=== PATIENT | male | born 1980 | race African-American/Black ===

== ENCOUNTER 2019-01-14 18:01 | Emergency (ER) | payer OTHER ==
[~2019-01-14] VITALS: Ht 162.6 cm; Wt 61.8 kg
[2019-01-14 18:15] VITALS: BP 136/86; Ht 162.6 cm; Wt 61.8 kg
== END 2019-01-14 19:48 | disposition home or self-care (01) ==
LOC: ED 18:01
DX: S60.021A Contusion of right index finger without damage to nail, initial encounter (principal); W23.0XXA Caught, crushed, jammed, or pinched between moving objects, initial encounter; Y93.89 Activity, other specified; Y92.89 Other specified places as the place of occurrence of the external cause; Y99.8 Other external cause status

== ENCOUNTER 2019-01-21 11:23 | Emergency (ER) | payer OTHER ==
[~2019-01-21] VITALS: Ht 162.6 cm; Wt 60.8 kg
[2019-01-21 11:37] VITALS: BP 122/76; Ht 162.6 cm; Wt 60.8 kg
== END 2019-01-21 15:45 | disposition home or self-care (01) ==
LOC: ED 11:23
DX: S60.021D Contusion of right index finger without damage to nail, subsequent encounter (principal); X58.XXXD Exposure to other specified factors, subsequent encounter